=== PATIENT | female | born 1980 | race Caucasian/White ===

== ENCOUNTER 2024-07-21 13:38 | Emergency (ER) | payer BC ==
[~2024-07-21] VITALS: Ht 152.4 cm; Wt 93.0 kg
[2024-07-21] MEDS ORDERED: CEFTRIAXONE 500 MG VIAL ONE (14:52)
[2024-07-21] MEDS ORDERED: IBUPROFEN 600 MG TABLET ONE (14:55)
[2024-07-21] MEDS: IBUPROFEN 600 MG TABLET PO ONE (14:56)
[2024-07-21] MEDS: CEFTRIAXONE 1 G VIAL IM ONE (14:56)
[2024-07-21] MEDS ORDERED: CEPH-570 PO (14:57)
[2024-07-21] MEDS ORDERED: IBUP-1953 PO (14:57)
[2024-07-21 15:04] VITALS: BP 135/80; TEMP 98.3; O2SAT 97
== END 2024-07-21 15:04 | disposition home or self-care (01) ==
LOC: ER 13:40
DX: L03.311 Cellulitis of abdominal wall (principal); G40.909 Epilepsy, unspecified, not intractable, without status epilepticus; Z79.2 Long term (current) use of antibiotics; Z88.5 Allergy status to narcotic agent; Z60.2 Problems related to living alone
CPT/HCPCS: 99284; 96372; J0696

== ENCOUNTER 2024-07-23 12:47 | Emergency (ER) | payer BC ==
[~2024-07-23] VITALS: Ht 165.1 cm; Wt 93.0 kg
[~2024-07-23 12:47] MED LIST: CEPH-570 PO; IBUP-1953 PO
[2024-07-23 12:55] VITALS: BP 130/80; TEMP 98.1; O2SAT 99
== END 2024-07-23 13:07 | disposition home or self-care (01) ==
LOC: ER 12:52
DX: Z48.00 Encounter for change or removal of nonsurgical wound dressing (principal); L02.211 Cutaneous abscess of abdominal wall; G40.909 Epilepsy, unspecified, not intractable, without status epilepticus; Z88.5 Allergy status to narcotic agent; Z60.2 Problems related to living alone

== ENCOUNTER 2024-07-30 20:07 | Emergency (ER) | payer BC, OTHER ==
[~2024-07-30] VITALS: Ht 165.1 cm; Wt 89.8 kg
[2024-07-30 20:52] VITALS: TEMP 98.3
[2024-07-30 21:33] LABS: BASOPHILS # (AUTO) 0.1 K/uL (0.0-0.2); BASOPHILS % (AUTO) 1.1 % (0.0-2.0); EOSINOPHILS # (AUTO) 0.4 K/uL (0.0-0.7); EOSINOPHILS % (AUTO) 5.7 % (0.0-6.0); HEMATOCRIT 38 % (33-45); LYMPHOCYTES # (AUTO) 2.2 K/uL (0.8-4.8); LYMPHOCYTES % (AUTO) 33.9 % (20.0-44.0); MEAN CORPUSCULAR HEMOGLOBIN 33 PG (26.0-33.0); MEAN CORPUSCULAR HGB CONC 35 g/dl (31.0-36.0); MEAN CORPUSCULAR VOLUME 94 fL (82-100); MONOCYTES # (AUTO) 0.7 K/uL (0.1-1.30); MONOCYTES % (AUTO) 10.3 % (2.0-12.0); NEUTROPHILS # (AUTO) 3.2 K/uL (1.8-8.9); PLATELET COUNT (AUTO) 364 K/uL (150-450); RED CELL DISTRIBUTION WIDTH 14.3 % (11.5-15.0); WHITE BLOOD COUNT (AUTO) 6.5 K/uL (4.3-11.0)
[2024-07-30 21:40] LABS: CARBON DIOXIDE 26 mmol/L (21-32); CHLORIDE 103 mmol/L (98-107); CREATININE 0.7 mg/dL (0.6-1.3); GLUCOSE 107 mg/dL (74-106); SODIUM SERUM 140 mmol/L (136-145); UREA NITROGEN, BLOOD 18 mg/dL (7-18)
[2024-07-30 21:52] LABS: ALANINE AMINOTRANSFERASE 53 U/L (12-78); ALBUMIN 3.1 g/dL (3.4-5.0); ALKALINE PHOSPHATASE 172 U/L (46-116); ASPARTATE AMINOTRANSFERASE 25 U/L (15-37); BILIRUBIN,TOTAL 0.1 mg/dL (0.2-1.0); NT-PRO BNP 19 pg/mL (0-125); TOTAL PROTEIN, SERUM 6.7 g/dL (6.4-8.2)
[2024-07-30] MEDS ORDERED: KETOROLAC TROMETHAMINE INJ 30 MG/ML VIAL ONE (22:36)
[2024-07-30] MEDS ORDERED: ACETAMINOPHEN ES 500 MG TABLET ONE (22:36)
[2024-07-30] MEDS: KETOROLAC TROMETHAMINE INJ 30 MG/ML VIAL IM ONE (22:40)
[2024-07-30] MEDS: ACETAMINOPHEN ES 500 MG TABLET PO ONE (22:40)
[2024-07-30 23:15] VITALS: BP 120/85; O2SAT 95
== END 2024-07-30 23:13 | disposition home or self-care (01) ==
LOC: ER 20:13
DX: R60.0 Localized edema (principal); R10.2 Pelvic and perineal pain; R06.02 Shortness of breath; Z88.5 Allergy status to narcotic agent; Z88.8 Allergy status to other drugs, medicaments and biological substances; Z91.041 Radiographic dye allergy status; Z60.2 Problems related to living alone; Z79.899 Other long term (current) drug therapy
CPT/HCPCS: 99285; 71045; 96372; 93005; 85025; 80048; 80076; 85378; 36415; 84484; 83880; 84702; J1885

== ENCOUNTER 2024-08-03 12:32 | Emergency (ER) | payer BC, MEDICAID ==
[~2024-08-03] VITALS: Ht 165.1 cm; Wt 94.3 kg
[2024-08-03 12:40] VITALS: BP 135/81; TEMP 98.4
[2024-08-03 13:50] VITALS: O2SAT 98
== END 2024-08-03 13:57 | disposition home or self-care (01) ==
LOC: ER 12:34
DX: Z22.7 Latent tuberculosis (principal); Z88.5 Allergy status to narcotic agent; Z88.8 Allergy status to other drugs, medicaments and biological substances; Z91.041 Radiographic dye allergy status; Z79.899 Other long term (current) drug therapy; Z60.2 Problems related to living alone
CPT/HCPCS: 71045-TC